=== PATIENT | female | born 1960 | race African-American/Black ===

== ENCOUNTER 2023-03-24 10:15 | Emergency (ER) | payer BC ==
[~2023-03-24] VITALS: Ht 167.6 cm; Wt 72.0 kg
[2023-03-24 10:24] VITALS: BP 136/80; PULSE 85; RESP 20; TEMP 98.4; O2SAT 100
[2023-03-24] MEDS ORDERED: TOPI15CA11 MT (12:42)
[2023-03-24] MEDS ORDERED: BECL10.62 INH (12:42)
[2023-03-24] MEDS ORDERED: LEVO25TA7 MT (12:42)
== END 2023-03-24 13:08 | disposition home or self-care (01) ==
LOC: ER 10:15
DX: R56.9 Unspecified convulsions (principal); E03.9 Hypothyroidism, unspecified; Z76.0 Encounter for issue of repeat prescription; Z88.8 Allergy status to other drugs, medicaments and biological substances; Z98.890 Other specified postprocedural states
CPT/HCPCS: 99281; 99283

== ENCOUNTER 2023-04-22 13:14 | Emergency (ER) | payer MEDICAID ==
[~2023-04-22] VITALS: Ht 160 cm; Wt 86.0 kg
[~2023-04-22 13:14] MED LIST: BECL10.62 INH; LEVO25TA7 MT; TOPI15CA11 MT
[2023-04-22 13:21] VITALS: O2SAT 100
[2023-04-22] MEDS ORDERED: ALBU6.7H15 INH (15:00)
[2023-04-22] MEDS ORDERED: FLUO20CA33 MT (15:00)
[2023-04-22] MEDS ORDERED: TOPI15CA11 MT (15:00)
[2023-04-22] MEDS ORDERED: LEVO25TA7 MT (15:00)
[2023-04-22] MEDS ORDERED: LORA-250 MT (15:00)
[2023-04-22] MEDS ORDERED: TOPUD MT (15:02)
[2023-04-22] MEDS ORDERED: CARB-274 RIGHT EAR (15:04)
[2023-04-22 16:41] VITALS: BP 131/87; PULSE 98; RESP 16; TEMP 98.9
== END 2023-04-22 16:42 | disposition home or self-care (01) ==
LOC: ER 13:14
DX: Z76.0 Encounter for issue of repeat prescription (principal); R68.84 Jaw pain; Z86.39 Personal history of other endocrine, nutritional and metabolic disease; Z86.59 Personal history of other mental and behavioral disorders; Z88.8 Allergy status to other drugs, medicaments and biological substances; Z79.899 Other long term (current) drug therapy
CPT/HCPCS: 99281

== ENCOUNTER 2023-05-17 14:38 | Emergency (ER) | payer MEDICAID ==
[~2023-05-17] VITALS: Ht 160 cm; Wt 86.0 kg
[~2023-05-17 14:38] MED LIST changes: +ALBU6.7H15 INH; +CARB-274 RIGHT EAR; +FLUO20CA33 MT; +LORA-250 MT; +TOPUD MT
[2023-05-17 14:43] VITALS: BP 131/73; PULSE 88; RESP 16; TEMP 98.8; O2SAT 100
[2023-05-17] MEDS ORDERED: BECL10.62 INH (15:25)
[2023-05-17] MEDS ORDERED: FLUO20CA33 MT ×3 (15:26→15:29)
[2023-05-17] MEDS ORDERED: LEVO25TA7 MT ×3 (15:27→15:29)
[2023-05-17] MEDS ORDERED: TOPI15CA11 MT (15:28)
== END 2023-05-17 18:12 | disposition home or self-care (01) ==
LOC: ER 14:38
DX: J45.909 Unspecified asthma, uncomplicated (principal); F32.A Depression, unspecified; Z98.890 Other specified postprocedural states; Z79.899 Other long term (current) drug therapy; Z88.8 Allergy status to other drugs, medicaments and biological substances; Z76.0 Encounter for issue of repeat prescription
CPT/HCPCS: 99283

== ENCOUNTER 2023-05-18 13:02 | Emergency (ER) | payer MEDICAID ==
[~2023-05-18] VITALS: Ht 167.6 cm; Wt 91.0 kg
[2023-05-18 13:08] VITALS: BP 131/84; PULSE 99; RESP 18; TEMP 98.7; O2SAT 100
== END 2023-05-18 14:27 | disposition home or self-care (01) ==
LOC: ER 13:02
DX: Z00.00 Encounter for general adult medical examination without abnormal findings (principal); Z76.0 Encounter for issue of repeat prescription; Z86.59 Personal history of other mental and behavioral disorders; J45.909 Unspecified asthma, uncomplicated; Z88.8 Allergy status to other drugs, medicaments and biological substances; Z79.899 Other long term (current) drug therapy; Z98.890 Other specified postprocedural states
CPT/HCPCS: 99281

== ENCOUNTER 2023-06-24 08:07 | Emergency (ER) | payer MEDICAID ==
[~2023-06-24] VITALS: Ht 165.1 cm; Wt 100.0 kg
[2023-06-24 08:26] VITALS: O2SAT 100
[2023-06-24] MEDS ORDERED: LEVO25TA7 MT (09:42)
[2023-06-24] MEDS ORDERED: BECL10.62 INH (09:42)
[2023-06-24] MEDS ORDERED: FLUO20CA33 MT (09:43)
[2023-06-24] MEDS ORDERED: ALBU6.7H15 INH (09:43)
[2023-06-24] MEDS ORDERED: TOPI15CA11 MT (09:43)
[2023-06-24 10:03] VITALS: BP 143/83; PULSE 98; RESP 18; TEMP 98.2
== END 2023-06-24 10:06 | disposition home or self-care (01) ==
LOC: ER 08:07
DX: Z76.0 Encounter for issue of repeat prescription (principal); J44.1 Chronic obstructive pulmonary disease with (acute) exacerbation; Z86.59 Personal history of other mental and behavioral disorders; Z98.890 Other specified postprocedural states
CPT/HCPCS: 99281

== ENCOUNTER 2023-07-21 09:56 | Emergency (ER) | payer MEDICAID ==
[~2023-07-21] VITALS: Ht 165.1 cm; Wt 81.0 kg
[2023-07-21 10:04] VITALS: O2SAT 100
[2023-07-21] MEDS ORDERED: TOPI15CA11 MT (13:34)
[2023-07-21] MEDS ORDERED: LEVO25TA7 MT (13:34)
[2023-07-21 14:28] VITALS: BP 135/79; PULSE 96; RESP 18; TEMP 98
== END 2023-07-21 14:30 | disposition home or self-care (01) ==
LOC: ER 09:56
DX: N64.4 Mastodynia (principal); R51.9 Headache, unspecified; J45.909 Unspecified asthma, uncomplicated; Z88.8 Allergy status to other drugs, medicaments and biological substances; Z79.899 Other long term (current) drug therapy; Z98.890 Other specified postprocedural states; Z86.59 Personal history of other mental and behavioral disorders
CPT/HCPCS: 99283

== ENCOUNTER 2023-07-26 06:49 | Emergency (ER) | payer MEDICAID ==
[~2023-07-26] VITALS: Ht 160 cm; Wt 86.0 kg
[2023-07-26 06:57] VITALS: O2SAT 100
[2023-07-26] MEDS ORDERED: LEVO25TA7 MT (10:37)
[2023-07-26] MEDS ORDERED: IBUP-1525 MT (10:37)
[2023-07-26 12:44] VITALS: BP 131/77; PULSE 88; RESP 15; TEMP 98.3
== END 2023-07-26 12:47 | disposition home or self-care (01) ==
LOC: ER 07:08
DX: N64.4 Mastodynia (principal); J45.909 Unspecified asthma, uncomplicated; F32.A Depression, unspecified; Z76.0 Encounter for issue of repeat prescription; Z98.890 Other specified postprocedural states; Z88.8 Allergy status to other drugs, medicaments and biological substances
CPT/HCPCS: 81025; 99283

== ENCOUNTER 2023-08-26 10:18 | Emergency (ER) | payer MEDICAID ==
[~2023-08-26] VITALS: Ht 172.7 cm; Wt 97.0 kg
[~2023-08-26 10:18] MED LIST changes: +IBUP-1525 MT
[2023-08-26 10:35] VITALS: TEMP 97.8; O2SAT 100
[2023-08-26 12:34] LABS: CLARITY URINE CLEAR (CLEAR); COLOR URINE YELLOW (YELLOW); GLUCOSE URINE NEGATIVE (NEGATIVE); KETONES URINE NEGATIVE (NEGATIVE); LEUKOCYTE ESTERASE URINE 1+ (NEGATIVE); NITRITE URINE NEGATIVE (NEGATIVE); OCCULT BLOOD URINE TRACE (NEGATIVE); PROTEIN URINE NEGATIVE (NEGATIVE); SPECIFIC GRAVITY URINE 1.018 (1.005-1.030); UROBILINOGEN URINE 0.2 E.U./dL (0.2-1.0)
[2023-08-26 13:02] LABS: BACTERIA URINE TRACE; RBC URINE 0-2 /hpf (0-2); SQUAMOUS EPITHELIAL CELL URINE FEW /lpf (RARE/1+); WBC URINE 0-2 /hpf (0-2)
[2023-08-26 13:03] LABS: MUCUS URINE 2+ /lpf (< = 2+)
[2023-08-26 13:41] LABS: BASOPHILS % 0.7 % (0.0-2.0); HEMATOCRIT. 36.2 % (36.0-48.0); HEMOGLOBIN. 11.6 g/dL (12.0-16.0); LYMPHOCYTES % 20.7 % (20.0-50.0); MEAN CORPUSCULAR HEMOGLOBIN 28.4 pg (28.0-32.0); MEAN CORPUSCULAR HGB CONC 32.1 g/dL (31.0-37.0); MEAN CORPUSCULAR VOLUME 88.4 fL (81.0-99.0); MEAN PLATELET VOLUME 7.8 fl (7.4-10.4); MONOCYTES % 9.2 % (2.0-8.0); NEUTROPHILS % 65.4 % (40.0-76.0); PLATELET 424 x1000/uL (130-400); RED BLOOD CELL COUNT 4.09 mill/uL (4.2-5.4); RED CELL DISTRIBUTION WIDTH 14.5 % (11.6-14.6)
[2023-08-26 13:45] LABS: ALANINE AMINOTRANSFERASE 10 IU/L (10-49); ALBUMIN 4.1 g/dL (3.2-4.8); ASPARTATE AMINOTRANSFERASE 15 IU/L (<34); BILIRUBIN TOTAL 0.4 mg/dL (0.1-1.0); CALCIUM 9.5 mg/dL (8.7-10.4); CARBON DIOXIDE 30 mEq/L (21-32); CHLORIDE 105 mEq/L (98-107); CREATININE 0.8 mg/dL (0.6-1.0); GLUCOSE 104 mg/dL (70-105); POTASSIUM 3.9 mEq/L (3.5-5.1); PROTEIN TOTAL 6.7 g/dL (6.0-8.3); SODIUM 138 mEq/L (136-145); UREA NITROGEN BLOOD 12 mg/dL (9-23)
[2023-08-26] MEDS: KETOROLAC 60MG/2ML VIAL IM STA (13:55)
[2023-08-26] MEDS ORDERED: IBUP-2029 MT (14:40)
[2023-08-26] MEDS ORDERED: LEVO25TA2 MT (15:10)
[2023-08-26 15:15] VITALS: BP 149/76; PULSE 68; RESP 16
== END 2023-08-26 15:18 | disposition home or self-care (01) ==
LOC: ER 10:53
DX: D25.9 Leiomyoma of uterus, unspecified (principal); R16.0 Hepatomegaly, not elsewhere classified; D27.9 Benign neoplasm of unspecified ovary; J45.909 Unspecified asthma, uncomplicated; Z98.890 Other specified postprocedural states; Z79.899 Other long term (current) drug therapy
CPT/HCPCS: 80053; 81003; 81025; 83690; 85025; 36415; 74176; 96372; 99285; J1885; Z7610

== ENCOUNTER 2023-09-24 07:02 | Emergency (ER) | payer MEDICAID ==
[~2023-09-24] VITALS: Ht 160 cm; Wt 87.0 kg
[~2023-09-24 07:02] MED LIST changes: +IBUP-2029 MT; +LEVO25TA2 MT
[2023-09-24 07:11] VITALS: BP 126/83; PULSE 83; RESP 16; TEMP 98.8; O2SAT 100
[2023-09-24 07:39] LABS: BASOPHILS % 0.6 % (0.0-2.0); EOSINOPHILS % 4.7 % (0.0-5.0); HEMATOCRIT. 37.7 % (36.0-48.0); HEMOGLOBIN. 12.5 g/dL (12.0-16.0); LYMPHOCYTES % 23.7 % (20.0-50.0); MEAN CORPUSCULAR HEMOGLOBIN 29.9 pg (28.0-32.0); MEAN CORPUSCULAR HGB CONC 33.2 g/dL (31.0-37.0); MEAN CORPUSCULAR VOLUME 90.3 fL (81.0-99.0); PLATELET 434 x1000/uL (130-400); RED BLOOD CELL COUNT 4.17 mill/uL (4.2-5.4); RED CELL DISTRIBUTION WIDTH 14.6 % (11.6-14.6); WHITE BLOOD COUNT 7.2 x1000/uL (4.5-11.0)
[2023-09-24 07:59] LABS: ALANINE AMINOTRANSFERASE 11 IU/L (10-49); ALBUMIN 4.3 g/dL (3.2-4.8); ASPARTATE AMINOTRANSFERASE 16 IU/L (<34); BILIRUBIN TOTAL 0.3 mg/dL (0.1-1.0); CALCIUM 8.8 mg/dL (8.7-10.4); CARBON DIOXIDE 26 mEq/L (21-32); CHLORIDE 108 mEq/L (98-107); CREATININE 0.9 mg/dL (0.6-1.0); GLUCOSE 88 mg/dL (70-105); POTASSIUM 3.5 mEq/L (3.5-5.1); PROTEIN TOTAL 7.6 g/dL (6.0-8.3); SODIUM 140 mEq/L (136-145); UREA NITROGEN BLOOD 6 mg/dL (9-23)
[2023-09-24 08:05] LABS: TROPONIN I HIGH SENSITIVITY < 4 ng/L (3.0-34)
[2023-09-24 08:07] LABS: HCG SCREEN NEGATIVE
[2023-09-24 08:11] LABS: INR 0.9; PROTHROMBIN TIME 10.3 sec (9.6-11.0)
[2023-09-24 10:03] LABS: CLARITY URINE CLEAR (CLEAR); COLOR URINE YELLOW (YELLOW); GLUCOSE URINE NEGATIVE (NEGATIVE); KETONES URINE NEGATIVE (NEGATIVE); LEUKOCYTE ESTERASE URINE NEGATIVE (NEGATIVE); NITRITE URINE NEGATIVE (NEGATIVE); OCCULT BLOOD URINE 1+ (NEGATIVE); PH URINE 6.5 (4.5-8.0); PROTEIN URINE NEGATIVE (NEGATIVE); SPECIFIC GRAVITY URINE 1.011 (1.005-1.030); UROBILINOGEN URINE 0.2 E.U./dL (0.2-1.0)
[2023-09-24 10:17] LABS: SQUAMOUS EPITHELIAL CELL URINE FEW /lpf (RARE/1+)
[2023-09-24 10:18] LABS: BACTERIA URINE TRACE; RBC URINE 0-2 /hpf (0-2); WBC URINE 0-2 /hpf (0-2)
[2023-09-24] MEDS ORDERED: BECL10.62 INH (10:33)
[2023-09-24] MEDS ORDERED: LEVO25TA7 MT (10:33)
[2023-09-24] MEDS ORDERED: ALBU18HF2 IH (10:33)
== END 2023-09-24 10:49 | disposition home or self-care (01) ==
LOC: ER 07:02
DX: R07.89 Other chest pain (principal); J45.909 Unspecified asthma, uncomplicated; Z76.0 Encounter for issue of repeat prescription; Z86.39 Personal history of other endocrine, nutritional and metabolic disease; Z88.8 Allergy status to other drugs, medicaments and biological substances; Z79.899 Other long term (current) drug therapy; Z86.59 Personal history of other mental and behavioral disorders; Z98.890 Other specified postprocedural states; Z00.00 Encounter for general adult medical examination without abnormal findings
CPT/HCPCS: 36415; 71045; 80053; 81003; 84484; 84703; 85025; 93005; 99285

== ENCOUNTER 2023-10-13 07:32 | Emergency (ER) | payer MEDICAID ==
[~2023-10-13] VITALS: Ht 167.6 cm; Wt 84.0 kg
[~2023-10-13 07:32] MED LIST changes: +ALBU18HF2 IH
[2023-10-13 07:45] VITALS: O2SAT 100
[2023-10-13 08:30] LABS: BASOPHILS % 0.5 % (0.0-2.0); EOSINOPHILS % 3.9 % (0.0-5.0); HEMATOCRIT. 37.4 % (36.0-48.0); HEMOGLOBIN. 12.4 g/dL (12.0-16.0); LYMPHOCYTES % 14.6 % (20.0-50.0); MEAN CORPUSCULAR HEMOGLOBIN 29.1 pg (28.0-32.0); MEAN CORPUSCULAR HGB CONC 33.2 g/dL (31.0-37.0); MEAN CORPUSCULAR VOLUME 87.7 fL (81.0-99.0); MEAN PLATELET VOLUME 7.7 fl (7.4-10.4); MONOCYTES % 7.8 % (2.0-8.0); NEUTROPHILS % 73.2 % (40.0-76.0); PLATELET 447 x1000/uL (130-400); RED BLOOD CELL COUNT 4.26 mill/uL (4.2-5.4); RED CELL DISTRIBUTION WIDTH 14.7 % (11.6-14.6); WHITE BLOOD COUNT 11.1 x1000/uL (4.5-11.0)
[2023-10-13 08:45] LABS: ALANINE AMINOTRANSFERASE 10 IU/L (10-49); ALBUMIN 4.1 g/dL (3.2-4.8); ASPARTATE AMINOTRANSFERASE 16 IU/L (<34); BILIRUBIN TOTAL 0.4 mg/dL (0.1-1.0); CALCIUM 9.1 mg/dL (8.7-10.4); CARBON DIOXIDE 26 mEq/L (21-32); CHLORIDE 108 mEq/L (98-107); CREATININE 0.7 mg/dL (0.6-1.0); GLUCOSE 97 mg/dL (70-105); POTASSIUM 3.8 mEq/L (3.5-5.1); PROTEIN TOTAL 6.8 g/dL (6.0-8.3); SODIUM 138 mEq/L (136-145); UREA NITROGEN BLOOD 7 mg/dL (9-23)
[2023-10-13 09:25] LABS: CLARITY URINE CLEAR (CLEAR); COLOR URINE YELLOW (YELLOW); GLUCOSE URINE NEGATIVE (NEGATIVE); KETONES URINE NEGATIVE (NEGATIVE); LEUKOCYTE ESTERASE URINE 1+ (NEGATIVE); NITRITE URINE NEGATIVE (NEGATIVE); OCCULT BLOOD URINE 1+ (NEGATIVE); PH URINE 6.5 (4.5-8.0); PROTEIN URINE NEGATIVE (NEGATIVE); SPECIFIC GRAVITY URINE 1.018 (1.005-1.030); UROBILINOGEN URINE 0.2 E.U./dL (0.2-1.0)
[2023-10-13 09:44] LABS: MUCUS URINE 2+ /lpf (< = 2+); SQUAMOUS EPITHELIAL CELL URINE 2+ /lpf (RARE/1+)
[2023-10-13 09:45] LABS: CALCIUM OXALATE CRYSTALS URINE 1+ /lpf
[2023-10-13 09:49] LABS: BACTERIA URINE 2+
[2023-10-13] MEDS ORDERED: CEFP200T13 MT (14:07)
[2023-10-13] MEDS ORDERED: NAPR-681 MT (14:07)
[2023-10-13 14:41] VITALS: BP 147/87; PULSE 91; RESP 18; TEMP 98.3
[2023-10-13] MEDS: KETOROLAC 15MG/ML VIAL IM ONE (14:54)
== END 2023-10-13 14:41 | disposition home or self-care (01) ==
LOC: ER 07:48
DX: N39.0 Urinary tract infection, site not specified (principal); D21.9 Benign neoplasm of connective and other soft tissue, unspecified; E89.0 Postprocedural hypothyroidism; J45.909 Unspecified asthma, uncomplicated; Z41.1 Encounter for cosmetic surgery; Z88.8 Allergy status to other drugs, medicaments and biological substances; Z79.899 Other long term (current) drug therapy; Z86.59 Personal history of other mental and behavioral disorders; Z98.890 Other specified postprocedural states
CPT/HCPCS: 80053; 81003; 83690; 85025; 36415; 76830; 76856; 96372; 99285; J1885; Z7610

== ENCOUNTER 2023-12-25 08:27 | Emergency (ER) | payer MEDICAID ==
[~2023-12-25] VITALS: Ht 160 cm; Wt 86.2 kg
[~2023-12-25 08:27] MED LIST changes: +CEFP200T13 MT; +NAPR-681 MT
[2023-12-25 08:35] VITALS: BP 136/76; PULSE 94; RESP 16; TEMP 98.2; O2SAT 99
[2023-12-25] MEDS ORDERED: ALBU6.7H15 INH (09:16)
[2023-12-25] MEDS ORDERED: BECL10.6 INH (09:16)
[2023-12-25] MEDS ORDERED: TOPI25TA48 MT (09:16)
[2023-12-25] MEDS ORDERED: LEVO25TA7 MT (09:16)
[2023-12-25] MEDS ORDERED: FLUO10TA53 MT (09:16)
[2023-12-25 09:49] LABS: CLARITY URINE CLOUDY (CLEAR); COLOR URINE YELLOW (YELLOW); GLUCOSE URINE NEGATIVE (NEGATIVE); KETONES URINE TRACE (NEGATIVE); LEUKOCYTE ESTERASE URINE 1+ (NEGATIVE); NITRITE URINE NEGATIVE (NEGATIVE); OCCULT BLOOD URINE 1+ (NEGATIVE); PH URINE 6.5 (4.5-8.0); PROTEIN URINE TRACE (NEGATIVE); SPECIFIC GRAVITY URINE 1.021 (1.005-1.030); UROBILINOGEN URINE 0.2 E.U./dL (0.2-1.0)
[2023-12-25 10:02] LABS: SQUAMOUS EPITHELIAL CELL URINE 1+ /lpf (RARE/1+)
[2023-12-25 10:03] LABS: BACTERIA URINE 1+; YEAST URINE NONE SEEN
== END 2023-12-25 10:32 | disposition home or self-care (01) ==
LOC: ER 08:42
DX: Z76.89 Persons encountering health services in other specified circumstances (principal); J45.909 Unspecified asthma, uncomplicated; Z98.890 Other specified postprocedural states; Z79.899 Other long term (current) drug therapy; Z88.8 Allergy status to other drugs, medicaments and biological substances; Z76.0 Encounter for issue of repeat prescription
CPT/HCPCS: 81003; 81025; 99283

== ENCOUNTER 2024-05-23 10:29 | Emergency (ER) | payer MEDICAID ==
[~2024-05-23] VITALS: Ht 160 cm; Wt 89.0 kg
[~2024-05-23 10:29] MED LIST changes: +BECL10.6 INH; +FLUO10TA44 MT; +TOPI25TA48 MT
[2024-05-23 10:32] VITALS: O2SAT 100
[2024-05-23 12:00] LABS: CLARITY URINE CLEAR (CLEAR); COLOR URINE YELLOW (YELLOW); GLUCOSE URINE NEGATIVE (NEGATIVE); KETONES URINE NEGATIVE (NEGATIVE); LEUKOCYTE ESTERASE URINE NEGATIVE (NEGATIVE); NITRITE URINE NEGATIVE (NEGATIVE); OCCULT BLOOD URINE 1+ (NEGATIVE); PH URINE 5.5 (4.5-8.0); PROTEIN URINE NEGATIVE (NEGATIVE); SPECIFIC GRAVITY URINE 1.009 (1.005-1.030); UROBILINOGEN URINE 0.2 E.U./dL (0.2-1.0)
[2024-05-23] MEDS ORDERED: LEVO25TA2 MT (12:08)
[2024-05-23] MEDS ORDERED: TOPI15CA11 MT (12:08)
[2024-05-23 12:29] LABS: SQUAMOUS EPITHELIAL CELL URINE 1+ /lpf (RARE/1+)
[2024-05-23 12:30] LABS: MUCUS URINE 2+ /lpf (< = 2+)
[2024-05-23 12:31] LABS: RBC URINE 0-2 /hpf (0-2)
[2024-05-23 12:33] LABS: BACTERIA URINE TRACE
[2024-05-23] MEDS ORDERED: LEVO-65 MT (12:50)
[2024-05-23 12:53] VITALS: BP 115/66; PULSE 78; RESP 18; TEMP 37.16964; O2SAT 100
== END 2024-05-23 13:05 | disposition home or self-care (01) ==
LOC: ER 10:47
DX: N30.90 Cystitis, unspecified without hematuria (principal); J45.909 Unspecified asthma, uncomplicated; Z79.899 Other long term (current) drug therapy; Z98.890 Other specified postprocedural states; Z88.8 Allergy status to other drugs, medicaments and biological substances
CPT/HCPCS: 81003; 99283

== ENCOUNTER 2024-07-12 13:28 | Emergency (ER) | payer MEDICAID ==
[~2024-07-12] VITALS: Ht 160 cm; Wt 88.0 kg
[~2024-07-12 13:28] MED LIST changes: +LEVO-65 MT
[2024-07-12 13:34] VITALS: O2SAT 100
[2024-07-12 13:39] VITALS: BP 159/72; PULSE 87; RESP 18; TEMP 97.9; O2SAT 100
[2024-07-12 17:55] LABS: CLARITY URINE CLEAR (CLEAR); COLOR URINE YELLOW (YELLOW); GLUCOSE URINE NEGATIVE (NEGATIVE); KETONES URINE NEGATIVE (NEGATIVE); LEUKOCYTE ESTERASE URINE NEGATIVE (NEGATIVE); NITRITE URINE NEGATIVE (NEGATIVE); OCCULT BLOOD URINE 1+ (NEGATIVE); PH URINE 6.5 (4.5-8.0); PROTEIN URINE NEGATIVE (NEGATIVE); UROBILINOGEN URINE 0.2 E.U./dL (0.2-1.0)
[2024-07-12 18:08] LABS: BACTERIA URINE NONE SEEN; RBC URINE 0-2 /hpf (0-2); SQUAMOUS EPITHELIAL CELL URINE RARE /lpf (RARE/1+); WBC URINE NONE SEEN /hpf (0-2)
== END 2024-07-12 18:56 | disposition left against medical advice (07) ==
LOC: ER 13:28
DX: N39.0 Urinary tract infection, site not specified (principal); Z53.21 Procedure and treatment not carried out due to patient leaving prior to being seen by health care provider
CPT/HCPCS: 81003

== ENCOUNTER 2024-07-27 15:14 | Emergency (ER) | payer MEDICAID ==
[~2024-07-27] VITALS: Ht 167.6 cm; Wt 95.0 kg
[2024-07-27 15:44] LABS: CLARITY URINE CLEAR (CLEAR); COLOR URINE YELLOW (YELLOW); GLUCOSE URINE NEGATIVE (NEGATIVE); KETONES URINE NEGATIVE (NEGATIVE); LEUKOCYTE ESTERASE URINE TRACE (NEGATIVE); NITRITE URINE NEGATIVE (NEGATIVE); OCCULT BLOOD URINE 1+ (NEGATIVE); PH URINE 6.5 (4.5-8.0); PROTEIN URINE NEGATIVE (NEGATIVE); SPECIFIC GRAVITY URINE 1.017 (1.005-1.030); UROBILINOGEN URINE 0.2 E.U./dL (0.2-1.0)
[2024-07-27 15:58] VITALS: BP 122/56; PULSE 77; RESP 18; TEMP 36.7; O2SAT 98
[2024-07-27 16:04] LABS: BACTERIA URINE 1+; SQUAMOUS EPITHELIAL CELL URINE 1+ /lpf (RARE/1+); YEAST URINE NONE SEEN
[2024-07-27] MEDS ORDERED: LORA-250 PO (19:42)
[2024-07-27] MEDS ORDERED: IBUP-2028 MT (19:42)
[2024-07-27] MEDS ORDERED: CEPH500C2 MT (19:42)
[2024-07-27] MEDS: IBUPROFEN 400MG TABLET PO ONE (20:32)
[2024-07-27] MEDS: LIDOCAINE HCL 1% 20ML VIAL INFIL ONE (20:32)
[2024-07-27] MEDS: CEFTRIAXONE SODIUM 1G VIAL IM ONE (20:32)
== END 2024-07-27 20:32 | disposition home or self-care (01) ==
LOC: ER 15:14
DX: N39.0 Urinary tract infection, site not specified (principal); Z76.0 Encounter for issue of repeat prescription; G40.909 Epilepsy, unspecified, not intractable, without status epilepticus; J45.909 Unspecified asthma, uncomplicated; Z79.1 Long term (current) use of non-steroidal anti-inflammatories (NSAID); Z79.51 Long term (current) use of inhaled steroids; Z79.899 Other long term (current) drug therapy; Z88.8 Allergy status to other drugs, medicaments and biological substances
CPT/HCPCS: 99283; 81003; 96372; J0696; J3490

== ENCOUNTER 2024-08-21 14:37 | Emergency (ER) | payer MEDICAID ==
[~2024-08-21] VITALS: Ht 160 cm; Wt 95.0 kg
[~2024-08-21 14:37] MED LIST changes: +CEPH500C2 MT; +IBUP-2028 MT; +LORA-250 PO
[2024-08-21 14:52] VITALS: TEMP 36.9; O2SAT 100
[2024-08-21 15:09] LABS: CLARITY URINE CLEAR (CLEAR); COLOR URINE YELLOW (YELLOW); GLUCOSE URINE NEGATIVE (NEGATIVE); KETONES URINE NEGATIVE (NEGATIVE); LEUKOCYTE ESTERASE URINE 1+ (NEGATIVE); NITRITE URINE NEGATIVE (NEGATIVE); OCCULT BLOOD URINE 2+ (NEGATIVE); PH URINE 5.5 (4.5-8.0); PROTEIN URINE NEGATIVE (NEGATIVE); SPECIFIC GRAVITY URINE 1.021 (1.005-1.030); UROBILINOGEN URINE 0.2 E.U./dL (0.2-1.0)
[2024-08-21 15:36] LABS: BACTERIA URINE 2+; SQUAMOUS EPITHELIAL CELL URINE 3+ /lpf (RARE/1+); YEAST URINE NONE SEEN
[2024-08-21] MEDS ORDERED: CEFP200T13 MT (16:28)
[2024-08-21] MEDS ORDERED: TOPI25TA48 MT (16:46)
[2024-08-21] MEDS ORDERED: TOPI15CA11 MT ×2 (17:06→17:09)
[2024-08-21] MEDS: KETOROLAC 30MG/ML VIAL IM ONE (17:14)
[2024-08-21 17:28] VITALS: BP 145/88; PULSE 90; RESP 17; O2SAT 99
== END 2024-08-21 17:30 | disposition home or self-care (01) ==
LOC: ER 14:37
DX: N39.0 Urinary tract infection, site not specified (principal); Z79.51 Long term (current) use of inhaled steroids; Z79.1 Long term (current) use of non-steroidal anti-inflammatories (NSAID); Z76.0 Encounter for issue of repeat prescription; J45.909 Unspecified asthma, uncomplicated; Z86.018 Personal history of other benign neoplasm; Z79.899 Other long term (current) drug therapy; Z88.8 Allergy status to other drugs, medicaments and biological substances
CPT/HCPCS: 99283; 81003; 87086; 87186; 87077; 96372; J1885

== ENCOUNTER 2024-09-18 14:13 | Emergency (ER) | payer MEDICAID ==
[~2024-09-18] VITALS: Ht 167.6 cm; Wt 79.0 kg
[~2024-09-18 14:13] MED LIST changes: -TOPI25TA48 MT
[2024-09-18 14:15] VITALS: O2SAT 93
[2024-09-18 14:26] VITALS: BP 133/53; PULSE 89; RESP 14; TEMP 36.6; O2SAT 99
[2024-09-18 15:02] LABS: CLARITY URINE CLOUDY (CLEAR); COLOR URINE YELLOW (YELLOW); GLUCOSE URINE NEGATIVE (NEGATIVE); KETONES URINE NEGATIVE (NEGATIVE); LEUKOCYTE ESTERASE URINE 1+ (NEGATIVE); NITRITE URINE NEGATIVE (NEGATIVE); OCCULT BLOOD URINE 2+ (NEGATIVE); PH URINE 5.5 (4.5-8.0); PROTEIN URINE NEGATIVE (NEGATIVE); SPECIFIC GRAVITY URINE 1.017 (1.005-1.030); UROBILINOGEN URINE 0.2 E.U./dL (0.2-1.0)
[2024-09-18 15:18] LABS: BACTERIA URINE 1+; RBC URINE 0-2 /hpf (0-2); SQUAMOUS EPITHELIAL CELL URINE 2+ /lpf (RARE/1+); YEAST URINE NONE SEEN
[2024-09-18] MEDS: KETOROLAC 30MG/ML VIAL IM STA (17:03)
[2024-09-18 18:05] LABS: BASOPHILS % 0.6 % (0.0-2.0); EOSINOPHILS % 3.3 % (0.0-5.0); HEMATOCRIT. 37.2 % (36.0-48.0); HEMOGLOBIN. 11.9 g/dL (12.0-16.0); MEAN CORPUSCULAR HEMOGLOBIN 28.1 pg (28.0-32.0); MEAN CORPUSCULAR VOLUME 87.6 fL (81.0-99.0); MEAN PLATELET VOLUME 7.9 fl (7.4-10.4); MONOCYTES % 7.3 % (2.0-8.0); NEUTROPHILS % 66.8 % (40.0-76.0); PLATELET 461 x1000/uL (130-400); RED BLOOD CELL COUNT 4.25 mill/uL (4.2-5.4); RED CELL DISTRIBUTION WIDTH 14.5 % (11.6-14.6); WHITE BLOOD COUNT 10.5 x1000/uL (4.5-11.0)
[2024-09-18 18:17] LABS: CARBON DIOXIDE 28 mEq/L (21-32); CHLORIDE 107 mEq/L (98-107); POTASSIUM 3.8 mEq/L (3.5-5.1); SODIUM 143 mEq/L (136-145)
[2024-09-18 18:18] LABS: CALCIUM 9.1 mg/dL (8.7-10.4)
[2024-09-18 18:22] LABS: CREATININE 0.7 mg/dL (0.6-1.0)
[2024-09-18 18:23] LABS: GLUCOSE 101 mg/dL (70-105); UREA NITROGEN BLOOD 10 mg/dL (9-23)
[2024-09-18] MEDS ORDERED: LEVO25TA7 MT (19:25)
[2024-09-18] MEDS ORDERED: CEPH500T MT (19:25)
[2024-09-18] MEDS ORDERED: TRAM50TA3 MT (19:26)
== END 2024-09-18 20:01 | disposition home or self-care (01) ==
LOC: ER 14:13
DX: D25.9 Leiomyoma of uterus, unspecified (principal); N39.0 Urinary tract infection, site not specified; J45.909 Unspecified asthma, uncomplicated; Z79.899 Other long term (current) drug therapy; Z79.890 Hormone replacement therapy; Z79.51 Long term (current) use of inhaled steroids; Z79.1 Long term (current) use of non-steroidal anti-inflammatories (NSAID); Z86.018 Personal history of other benign neoplasm; Z88.8 Allergy status to other drugs, medicaments and biological substances
CPT/HCPCS: 80048; 81003; 85025; 36415; 74176; 96372; 99285; J1885

== ENCOUNTER 2025-04-20 08:14 | Emergency (ER) | payer MEDICAID ==
[~2025-04-20] VITALS: Ht 160 cm; Wt 85.0 kg
[~2025-04-20 08:14] MED LIST changes: -ALBU18HF2 IH; -BECL10.6 INH; -BECL10.62 INH; -CARB-274 RIGHT EAR; -CEFP200T13 MT; -CEPH500C2 MT; -FLUO10TA44 MT; -FLUO20CA33 MT; +FLUO20CA35 MT; -IBUP-1525 MT; -IBUP-2028 MT; -IBUP-2029 MT; +KEPP500 MT; -LEVO-65 MT; -LEVO25TA2 MT; -LORA-250 MT; -LORA-250 PO; -NAPR-681 MT; -TOPI15CA11 MT
[2025-04-20 08:23] VITALS: O2SAT 99
[2025-04-20] MEDS ORDERED: KEPP500 MT (08:50)
[2025-04-20] MEDS ORDERED: LEVETIRACETAM 500MG TABLET PO ONE (09:00)
[2025-04-20 09:02] VITALS: BP 125/66; PULSE 80; RESP 15; TEMP 36.7; O2SAT 99
== END 2025-04-20 09:16 | disposition home or self-care (01) ==
LOC: ER 08:14
DX: R56.9 Unspecified convulsions (principal); Z76.0 Encounter for issue of repeat prescription; J45.909 Unspecified asthma, uncomplicated; E03.9 Hypothyroidism, unspecified; F32.A Depression, unspecified; Z88.8 Allergy status to other drugs, medicaments and biological substances; Z79.899 Other long term (current) drug therapy
CPT/HCPCS: 99282